=== PATIENT | female | born 1980 | race Hispanic/Latino ===

== ENCOUNTER 2025-08-18 19:28 | Emergency (ER) | payer SELFPAY ==
[~2025-08-18] VITALS: Ht 154.9 cm; Wt 79.4 kg
[2025-08-18 19:36] VITALS: TEMP 98.9
[2025-08-18] MEDS: HYDROcodone/APAP 5/325 1 TAB TABLET PO ONE (20:25)
--- NOTE | 2025-08-18 21:49 | HMCIMG ---
EXAM: CR Right Femur, 4 views. CLINICAL HISTORY: Pain. COMPARISON: None provided. FINDINGS: No acute fracture or aggressive appearing osseous lesion. Joint spaces are within normal limits. The soft tissues are unremarkable. IMPRESSION: No acute bony abnormality is evident. /[place]
--- NOTE | 2025-08-18 21:57 | HMCIMG ---
EXAM: CR Right Foot, 3 views. CLINICAL HISTORY: Pain. COMPARISON: None provided. FINDINGS: Nondisplaced acute transverse fracture around the base of the third metatarsal. The remaining bones and joints are within normal limits. Mild diffuse soft tissue swelling. IMPRESSION: Nondisplaced acute transverse fracture around the base of the third metatarsal. /[place]
--- NOTE | 2025-08-18 22:00 | HMCIMG ---
EXAM: CR Right Ankle, 3 views CLINICAL HISTORY: Pain. COMPARISON: None provided. FINDINGS: No acute fracture or aggressive appearing osseous lesion. Joint spaces are within normal limits. No radiographic evidence of joint effusion. Mild distal Achilles enthesopathy. IMPRESSION: No acute bony abnormality is evident. /[place]
--- NOTE | 2025-08-18 22:02 | HMCIMG ---
EXAM: CR Pelvis and Right Hip, 3 views. CLINICAL HISTORY: Pain. COMPARISON: None provided. FINDINGS: No acute fracture or aggressive appearing osseous lesion. Mild degenerative changes around the symphysis pubis. Grossly unremarkable femoroacetabular and sacroiliac joints bilaterally. Presumed tiny pelvic phleboliths. IMPRESSION: No acute bony abnormality is evident. /[place]
--- NOTE | 2025-08-18 22:03 | HMCIMG ---
EXAM: CR Right Knee, 3 views CLINICAL HISTORY: Pain. COMPARISON: None provided. FINDINGS: No acute fracture or aggressive appearing osseous lesion. Joint spaces are within normal limits. There is no joint effusion appreciated. The soft tissues are unremarkable. IMPRESSION: No acute bony abnormality is evident. /[place]
[2025-08-18 22:33] VITALS: BP 136/73; PULSE 68; RESP 20; O2SAT 99
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
== END 2025-08-18 22:58 | disposition home or self-care (01) ==
LOC: EDH 19:28
DX: S92.331A Displaced fracture of third metatarsal bone, right foot, initial encounter for closed fracture (principal); M79.604 Pain in right leg; E11.9 Type 2 diabetes mellitus without complications; I10 Essential (primary) hypertension; W18.39XA Other fall on same level, initial encounter; Y93.89 Activity, other specified; Y92.89 Other specified places as the place of occurrence of the external cause; Y99.8 Other external cause status
CPT/HCPCS: 73502; 73552; 73562; 73600; 73630; 99284